=== PATIENT | female | born 1970 | race Caucasian/White ===

== ENCOUNTER 2021-07-29 14:48 | Outpatient (CLI) | payer OTHER ==
--- NOTE | 2021-07-29 11:59 | XRAY Report ---
PROCEDURE: Wrist 3 View RT INDICATIONS: UNSPECIFIED FX OF R WRIST TECHNIQUE: 3 views of the wrist were acquired. COMPARISON: None FINDINGS: Bones: No fractures or dislocations. No suspicious bony lesions. Soft tissues: No suspicious soft tissue calcifications. IMPRESSION: No evidence acute bony abnormality of the right wrist. If clinical suspicion and/or symptoms persist, further assessment with repeat plain films or advanced imaging (e.g., CT, MRI, or bone scan) may be helpful for further assessment. Reviewed by: Kwadwo Perrin MD on 07/29/2021 11:57 AM PDT Approved by: Kwadwo Perrin MD on 07/29/2021 11:57 AM PDT Station ID: [id number]
== END 2021-07-29 14:50 ==
LOC: DI.N 14:48
PROVIDERS: ATTEND Physician Assistant Medical
DX: S62.014A Nondisplaced fracture of distal pole of navicular [scaphoid] bone of right wrist, initial encounter for closed fracture (principal)

== ENCOUNTER 2022-02-15 09:02 | Outpatient (CLI) | payer OTHER ==
[2022-02-15 12:35] LABS: BASOPHILS # (AUTO) 0.1 10^3/uL (0.0-0.1); BASOPHILS % (AUTO) 0.9 %; EOSINOPHILS # (AUTO) 0.1 10^3/uL (0.0-0.7); EOSINOPHILS % (AUTO) 0.7 %; HCT - HEMATOCRIT 39.1 % (37.0-47.0); HGB - HEMOGLOBIN 12.5 g/dL (12.0-16.0); LYMPHOCYTES # (AUTO) 1.1 10^3/uL (1.5-3.5); LYMPHOCYTES % (AUTO) 15.9 %; MEAN CORPUSCULAR HEMOGLOBIN 26.7 pg (27.0-31.0); MEAN CORPUSCULAR VOLUME 83.5 fL (81.0-99.0); MEAN PLATELET VOLUME 10.1 fL (7.9-10.8); MONOCYTES # (AUTO) 0.4 10^3/uL (0.0-1.0); MONOCYTES % (AUTO) 5.8 %; NEUTROPHILS # (AUTO) 5.1 10^3/uL (1.5-6.6); NEUTROPHILS % (AUTO) 76.4 %; PLT - PLATELET COUNT 354 10^3/uL (130-450); RED BLOOD COUNT 4.68 10^6/uL (4.20-5.40); RED CELL DISTRIBUTION WIDTH 13.7 % (12.0-15.0); WHITE BLOOD COUNT 6.7 x10^3/uL (4.8-10.8)
[2022-02-15 12:58] LABS: THYROID STIMULATING HORMONE 2.32 uIU/mL (0.34-5.60)
[2022-02-15 13:00] LABS: FREE T4 (FREE THYROXINE) 0.95 ng/dL (0.58-1.64)
[2022-02-15 13:04] LABS: % IRON SATURATION 7 % (20-50); ALBUMIN 4.2 g/dL (3.2-5.5); ALBUMIN/GLOBULIN RATIO 1.2 (1.0-2.2); ALKALINE PHOSPHATASE 94 IU/L (42-121); ALT ALANINE AMINOTRANSFERASE 17 IU/L (10-60); AST ASPARTATE AMINOTRANSFERASE 20 IU/L (10-42); BILIRUBIN,TOTAL 0.4 mg/dL (0.2-1.0); BUN - BLOOD UREA NITROGEN 13 mg/dL (6-20); CALCIUM 9.2 mg/dL (8.5-10.3); CARBON DIOXIDE - CO2 27 mmol/L (21-32); CHLORIDE 99 mmol/L (101-111); CHOL/HDL RATIO 2.8 (<4.4); CHOLESTEROL 186 mg/dL; CREATININE 0.8 mg/dL (0.4-1.0); FERRITIN 6.2 ng/mL (11.0-306.8); GFR - MDRD 76 (>89); GLUCOSE 99 mg/dL (70-100); HDL CHOLESTEROL 66 mg/dL; IRON 27 ug/dL (28-170); LDL CHOLESTEROL,CALCULATED 93 mg/dL; LDL/HDL RATIO 1.4 (<4.4); SODIUM 136 mmol/L (135-145); TOTAL IRON BINDING CAPACITY 413 ug/dL (250-450); TOTAL PROTEIN 7.6 g/dL (6.7-8.2); TRANSFERRIN 295 mg/dL (192-382); TRIGLYCERIDES 133 mg/dL; VLDL CHOLESTEROL 27 mg/dL
== END 2022-02-15 09:03 | disposition home or self-care (01) ==
LOC: LAB.N 09:02
PROVIDERS: ATTEND Physician Assistant
DX: L64.8 Other androgenic alopecia (principal); Z13.220 Encounter for screening for lipoid disorders
CPT/HCPCS: 36415; 80053; 80061; 82728; 83540; 83721; 84439; 84443; 84466; 85025

== ENCOUNTER 2022-05-28 11:20 | Day surgery (SDC) | payer OTHER ==
[~2022-05-28 11:20] MED LIST: LIDOCAINE-MPF 2% 5 ML VIAL ONE; PROPOFOL 500 MG/50 ML 500 MG/50 ML VIAL ONE
[2022-05-28] MEDS ORDERED: LACTATED RINGERS 1,000 ML IV ONE ×2 (11:45→13:21)
--- NOTE | 2022-05-28 12:03 | ANESTHESIA ---
Pre-Anesthesia VS, & Labs - Diagnosis Screening - Procedure Colonoscopy Vital Signs: Temp Pulse Resp BP Pulse Ox 36.8 C 98 24 133/75 H 95 05/28/22 11:39 05/28/22 11:39 05/28/22 11:39 05/28/22 11:39 05/28/22 11:39 Height: 5 ft 3.5 in Weight (kg): 79 kg Body Mass Index: 30.3 BMI Classification: Obese - NPO >8 hours - Is Patient ?: No Home Medications and Allergies Home Medications: Ambulatory Orders Ferrous Sulfate 1 tab PO DAILY 05/27/22 Ferrous Sulfate 1 tab PO DAILY 05/27/22 Allergies/Adverse Reactions: Allergies Allergy/AdvReac Type Severity Reaction Status Date / Time Penicillins Allergy Rash Verified 05/27/22 13:36 Anes History & Medical History - Anesthetic History Anesthesia Complications: reports: Other-see comment (Laryngospasm- negative pressure pulmonary edema, bradycardia, ICU stay) Family history of Anesthesia Complications: Denies Family history of Malignant Hyperthermia: Denies - Medical History Cardiovascular: reports: Murmur Pulmonary: reports: None Gastrointestinal: reports: GERD (infrequent) Urinary: reports: None Neuro: reports: None Musculoskeletal: reports: Osteoarthritis, Chronic back pain Endocrine/Autoimmune: reports: None Blood Disorders: reports: Anemia Smoking Status: Never smoker History of Cancer?: No - Surgical History Orthopedic: reports: Spine surgery Exam General: Alert, Oriented x3 Dental: WNL Mouth Openin Fingerbreadth Neck Mobility: Normal Mallampati classification: II Thyromental Distance: 4-6 cm Respiratory: Lungs clear Cardiovascular: Regular rate Mental/Cognitive Status: Alert/Oriented X3, Normal for patient Cognitive Status: Within normal limits Plan Anesthesia Type: Total IV Consent for Procedure(s) Verified and Reviewed: Yes Code Status: Attempt Resuscitation ASA classification: 2-Mild systemic disease Is this case an emergency?: No
[2022-05-28] MEDS ORDERED: MIDAZOLAM 2 MG/2 ML VIAL ONE (12:32)
[2022-05-28 13:51] VITALS: BP 110/66
--- NOTE | 2022-05-31 07:31 | ANESTHESIA POST OP EVALUATION ---
Anesthesia Post Eval - Post Anesthesia Eval Vitals: Last Vital Signs Temp 36.8 C 05/28/22 13:21 Pulse 76 05/28/22 13:50 Resp 16 05/28/22 13:50 BP 110/66 05/28/22 13:50 Pulse Ox 98 05/28/22 13:50 CV Function Including HR & BP: Stable Pain Control: Satisfactory Nausea & Vomiting: Negative Mental Status: Baseline Respiratory Status: Airway Patent Hydration Status: Satisfactory Anesthesia Complications: None
== END 2022-05-28 11:21 | disposition home or self-care (01) ==
LOC: SDS 11:20
PROVIDERS: ATTEND Surgery
DX: Z12.11 Encounter for screening for malignant neoplasm of colon (principal); K57.30 Diverticulosis of large intestine without perforation or abscess without bleeding; E66.9 Obesity, unspecified; Z68.31 Body mass index [BMI] 31.0-31.9, adult
CPT/HCPCS: 45378; J7120